=== PATIENT | female | born 1940 | race Caucasian/White ===

== ENCOUNTER 2018-04-18 13:37 | Emergency (ER) | payer MEDICARE ==
[2018-04-18 14:01] VITALS: BP 132/48
--- NOTE | 2018-04-18 14:15 | ED Physician Documentation ---
PD HPI BACK PAIN - Stated complaint Stated Complaint: BACK PX - Chief complaint Chief Complaint: Back Pain - History obtained from History obtained from: Patient - History of Present Illness Timing - onset: Chronic (She has chronic low back pain, she lives in [facility] and the meza are getting a little too hot for her so she came appear to be here until August. She contacted her pain management physician for refill and found that he [place] and now needs a refill of her medication. She has no acute complaint.) Review of Systems Constitutional: denies: Fever, Chills GI: denies: Abdominal Pain, Nausea, Vomiting, Diarrhea : reports: Reviewed and negative PD PAST MEDICAL HISTORY - Past Medical History Past Medical History: Yes Musculoskeletal: Chronic back pain - Past Surgical History Past Surgical History: Yes Ortho: Spine surgery - Present Medications Home Medications: Ambulatory Orders Medication Instructions Recorded Confirmed Calcium Carbonate [Calcium] 1 tab PO BID 04/18/18 Gabapentin 1,200 mg DAILY 04/18/18 HYDROcodone/ACET 7.5/325 [[place] 1 tab PO TID 04/18/18 7.5/325] Hydrocodone/Acetaminophen 1 each PO Q8H PRN #12 tablet 04/18/18 [Hydrocodon-Acetaminoph 7.5-325] Morphine Sulfate [Amanda] 10 mg 04/18/18 Morphine Sulfate [Morphine Sulfate 10 mg PO DAILY #4 cap.er.pel 04/18/18 ER] - Allergies Allergies/Adverse Reactions: Allergies Allergy/AdvReac Type Severity Reaction Status Date / Time Iodinated Contrast- Oral and Allergy Mild Rash Verified 04/18/18 14:02 IV Dye iodine Allergy Mild Rash Verified 04/18/18 14:02 Penicillins Allergy Mild Hives Verified 04/18/18 14:01 - Social History Does the pt smoke?: No Smoking Status: Never smoker Does the pt drink ETOH?: No Does the pt have substance abuse?: No - Immunizations Immunizations are current?: Yes PD ED PE NORMAL - Vitals Vital signs reviewed: Yes - General General: Alert and oriented X 3, No acute distress - Extremities Extremities: No deformity, No tenderness to palpate, No edema, No calf tenderness / cord - Neuro Neuro: Alert and oriented X 3, Normal speech - Psych Psych: Normal mood, Normal affect Results - Vitals Vitals: Vital Signs - 24 hr 04/18/18 13:55 Temperature 36.7 C Heart Rate 61 Respiratory 16 Rate Blood Pressure 132/48 H O2 Saturation 99 Oxygen O2 Source Room air PD MEDICAL DECISION MAKING - ED course ED course: We discussed that the emergency department only give a limited refill for pain medication[place] so she should be able to get in with him pretty quick for ongoing care while she is here for the next few months. - Sepsis Event Vital Signs: Vital Signs - 24 hr 04/18/18 13:55 Temperature 36.7 C Heart Rate 61 Respiratory 16 Rate Blood Pressure 132/48 H O2 Saturation 99 Oxygen O2 Source Room air Departure - Departure Disposition: Home, Self Care Clinical Impression: Back pain Qualifiers: Back pain location: low back pain Chronicity: chronic Back pain laterality: midline Sciatica presence: unspecified whether sciatica present Qualified Code(s ): M54.5 - Low back pain Condition: Good Record reviewed to determine appropriate education?: Yes Instructions: ED Chronic Pain Management Follow-Up: Indio Spicer MD [Credentialed Staff Provider] - Tomorrow Prescriptions: Hydrocodone/Acetaminophen [Hydrocodon-Acetaminoph 7.5-325] 1 each PO Q8H PRN # 12 tablet PRN Reason: Pain Morphine Sulfate [Morphine Sulfate ER] 10 mg PO DAILY #4 cap.er.pel Comments: Your blood pressure was elevated today on check into the emergency department. This does not mean that you have hypertension, it is a common phenomenon to come to the emergency department and have elevated blood pressure. I recommend that you see your primary care physician within the week to have it rechecked when you are feeling better.
== END 2018-04-18 14:20 | disposition home or self-care (01) ==
LOC: ED 13:37
DX: M54.5 Low back pain (principal); G89.29 Other chronic pain; R03.0 Elevated blood-pressure reading, without diagnosis of hypertension; Z76.0 Encounter for issue of repeat prescription
CPT/HCPCS: 99283

== ENCOUNTER 2018-06-25 07:57 | Emergency (ER) | payer MEDICARE ==
[2018-06-25 08:12] VITALS: BP 151/75
[2018-06-25] MEDS ORDERED: DEXAMETHASONE 10 MG/ML VIAL PO STA ×2 (08:52→08:57)
--- NOTE | 2018-06-25 08:54 | ED Physician Documentation ---
PD HPI HEENT - Stated complaint Stated Complaint: SWELLING IN MOUTH - Chief complaint Chief Complaint: Heent - History obtained from History obtained from: Patient - History of Present Illness Timing - onset: Last night Timing - duration: Hours Timing - details: Gradual onset, Still present Location: Mouth Improves: Nothing Associated symptoms: No: Fever, Congestion, Rhinorrhea, Trismus, Unable to swallow, Swollen nodes, Facial swelling, Headache, Cough Similar symptoms before: Diagnosis (angio-edema) Recently seen: Not recently seen - Additional information Additional information: 78-year-old female with a history of chronic back pain who is on morphine and is not on any lisinopril or MAGY inhibitor has developed angioedema in her mouth. She has had this happen to her a number of times over the past several years without rhyme or reason. She did have one episode that occurred after having her teeth whitened that she had to go to the emergency department for. She had an episode 2 weeks ago with slight swelling that resolved spontaneously this morning she has swelling under her tongue on the left side and on her gums on the left side upper. She is not having any compromise of her airway Review of Systems Constitutional: denies: Fever, Chills, Myalgias, Fatigue Eyes: denies: Decreased vision Ears: denies: Ear pain Nose: reports: Congestion. denies: Rhinorrhea / runny nose Throat: reports: Other (swollen tongue and gums on left). denies: Sore throat Cardiac: denies: Chest pain / pressure, Palpitations Respiratory: denies: Dyspnea, Cough GI: denies: Abdominal Pain, Nausea, Vomiting : denies: Dysuria, Frequency Skin: denies: Rash Musculoskeletal: denies: Neck pain, Back pain, Extremity pain Neurologic: denies: Generalized weakness, Focal weakness, Numbness PD PAST MEDICAL HISTORY - Past Medical History Musculoskeletal: Chronic back pain - Past Surgical History Past Surgical History: Yes Ortho: Spine surgery - Present Medications Home Medications: Ambulatory Orders Medication Instructions Recorded Confirmed Calcium Carbonate [Calcium] 1 tab PO BID 04/18/18 Gabapentin 1,200 mg DAILY 04/18/18 HYDROcodone/ACET 7.5/325 [[place] 1 tab PO TID 04/18/18 7.5/325] Hydrocodone/Acetaminophen 1 each PO Q8H PRN #12 tablet 04/18/18 [Hydrocodon-Acetaminoph 7.5-325] Morphine Sulfate [Amanda] 10 mg 04/18/18 Morphine Sulfate [Morphine Sulfate 10 mg PO DAILY #4 cap.er.pel 04/18/18 ER] Dexamethasone 8 - 12 mg PO ONCE PRN #10 tablet 06/25/18 - Allergies Allergies/Adverse Reactions: Allergies Allergy/AdvReac Type Severity Reaction Status Date / Time Iodinated Contrast- Oral and Allergy Mild Rash Verified 06/25/18 08:12 IV Dye iodine Allergy Mild Rash Verified 06/25/18 08:12 Penicillins Allergy Mild Hives Verified 06/25/18 08:12 - Social History Does the pt smoke?: No Smoking Status: Never smoker Does the pt drink ETOH?: No Does the pt have substance abuse?: No - Immunizations Immunizations are current?: Yes PD ED PE NORMAL - Vitals Vital signs reviewed: Yes (hypertensive mild ) - General General: Alert and oriented X 3, No acute distress, Well developed/nourished - HEENT HEENT: Atraumatic, PERRL, EOMI, Ears normal, Moist mucous membranes, Pharynx benign, Dentition benign, Other (There is subligular swelling more on the right and there is swelling to the gingival mucosa and reflective buccal mucosa on the left upper. There is no soft pallet or pharyngeal swelling. ) - Neck Neck: Supple, no meningeal sign, No bony TTP, No JVD - Cardiac Cardiac: RRR, No murmur - Respiratory Respiratory: No respiratory distress, Clear bilaterally - Back Back: No CVA TTP, No spinal TTP - Derm Derm: Normal color, Warm and dry, No rash - Extremities Extremities: No deformity, No edema - Neuro Neuro: Alert and oriented X 3, bottoming room inspector 2-12 intact, No motor deficit, No sensory deficit, Normal speech Eye Opening: Spontaneous Motor: Obeys Commands Verbal: Oriented GCS Score: 15 - Psych Psych: Normal mood, Normal affect Results - Vitals Vitals: Vital Signs - 24 hr 06/25/18 08:09 Temperature 36.2 C L Heart Rate 64 Respiratory 16 Rate Blood Pressure 151/75 H O2 Saturation 95 Oxygen O2 Source Room air PD MEDICAL DECISION MAKING - ED course Complexity details: considered differential, d/w patient, d/w family ED course: 78-year-old female with a history of angioedema has an episode of angioedema again today this appears mild and we are treating it with dexamethasone. She has taken Zyrtec prior to coming to the emergency department. This appears to be aquired angioedema - Sepsis Event Vital Signs: Vital Signs - 24 hr 06/25/18 08:09 Temperature 36.2 C L Heart Rate 64 Respiratory 16 Rate Blood Pressure 151/75 H O2 Saturation 95 Oxygen O2 Source Room air Departure - Departure Disposition: 01 Home, Self Care Clinical Impression: Angio-edema Qualifiers: Encounter type: initial encounter Qualified Code(s): T78.3XXA - Angioneurotic edema, initial encounter Condition: Stable Instructions: ED Angioedema Follow-Up: Indio Spicer MD [Primary Care Provider] - Prescriptions: Dexamethasone 8 - 12 mg PO ONCE PRN #10 tablet PRN Reason: angio-edema Discharge Date/Time: 06/25/18 10:57
== END 2018-06-25 10:57 | disposition home or self-care (01) ==
LOC: ED 07:57
DX: T78.3XXA Angioneurotic edema, initial encounter (principal)
CPT/HCPCS: 99283

== ENCOUNTER 2018-07-13 08:24 | Outpatient (CLI) | payer MEDICARE ==
--- NOTE | 2018-07-13 16:01 | DEXA Report ---
Reason: ASYMPTOMATIC MENOPAUSAL STATE Procedure Date: 07/13/2018 Accession Number: [id number] / [id number] Procedure: DEX - Dexa Spine and/or Hip CPT Code: FULL RESULT: EXAM: DUAL EMISSION X-RAY ABSORPTIOMETRY (DXA) SCAN EXAM DATE: 07/13/2018 09:04 AM. CLINICAL HISTORY: Postmenopausal with history of hormone replacement therapy and L5-S1 fusion COMPARISON: None. ADDITIONAL PATIENT INFORMATION: . TECHNIQUE: Dual energy x-ray absorptiometry (DXA) was performed on a [employer] System. Regions measured at the AP spine, left femoral neck, and if needed, forearm. TECHNIQUE LIMITATIONS/EXCLUSIONS: L4 excluded due to adjacent pedicle screws. FINDINGS: Bone mineral density L1 through L3: 1.179 g/cm, T score 0.1. Bone mineral density left femoral neck: 0.849 g/cm, T score -1.4. Bone mineral density left hip: 0.853 g/cm, T score -1.2. IMPRESSION: The World Health Organization classification based on the International Reference Standard is osteopenia. The fracture risk is increased. World Health Organization (WHO) Reporting guidelines (based on lowest BMD) for postmenopausal and perimenopausal women, men age 50 years and older: Normal: T-score at or greater than -1.0 Osteopenia: T-score between -1.1 to -2.4 Osteoporosis: T-score at or less than -2.5 RADIA
== END 2018-07-13 08:25 | disposition home or self-care (01) ==
LOC: DI 08:24
PROVIDERS: ATTEND Internal Medicine
DX: M85.88 Other specified disorders of bone density and structure, other site (principal)
CPT/HCPCS: 77080

== ENCOUNTER 2018-10-22 09:13 | Emergency (ER) | payer MEDICARE ==
[2018-10-22 09:20] VITALS: BP 138/61
--- NOTE | 2018-10-22 11:53 | ED Physician Documentation ---
PD HPI BACK PAIN - Stated complaint Stated Complaint: BACK PX - Chief complaint Chief Complaint: Back Pain - History obtained from History obtained from: Patient - History of Present Illness Timing - onset: Other (This is a sylvie 78-year-old woman with history of chronic back pain. She lives for the most part in [place], although spends time appear especially in the summer. She left her medications in [place] and has increasing lower back pain. More recently she had a radiofrequency ablation on the back which she felt like made her worse and she was on steroids which did not help.) Review of Systems Constitutional: denies: Fever, Chills Cardiac: denies: Chest pain / pressure, Palpitations Respiratory: denies: Dyspnea, Cough PD PAST MEDICAL HISTORY - Past Medical History Past Medical History: Yes Musculoskeletal: Chronic back pain - Past Surgical History Past Surgical History: Yes Ortho: Spine surgery - Present Medications Home Medications: Ambulatory Orders Medication Instructions Recorded Confirmed Calcium Carbonate [Calcium] 1 tab PO BID 04/18/18 10/22/18 Gabapentin 1,200 mg DAILY 04/18/18 10/22/18 Hydrocodone/Acetaminophen 1 each PO Q8H PRN #12 tablet 04/18/18 10/22/18 [Hydrocodon-Acetaminoph 7.5-325] Morphine Sulfate [Morphine Sulfate 10 mg PO DAILY #4 cap.er.pel 04/18/18 10/22/18 ER] Dexamethasone 8 - 12 mg PO ONCE PRN 10/22/18 10/22/18 HYDROcodone/ACET 7.5/325 [[place] 1 each PO Q6H PRN #18 tablet 10/22/18 7.5/325] Lidocaine Patch 5% [Lidoderm Patch] 1 patch TOP DAILY PRN #10 patch 10/22/18 Morphine ER 15 mg PO DAILY #6 tablet 10/22/18 - Allergies Allergies/Adverse Reactions: Allergies Allergy/AdvReac Type Severity Reaction Status Date / Time Iodinated Contrast- Oral and Allergy Mild Rash Verified 10/22/18 09:20 IV Dye iodine Allergy Mild Rash Verified 10/22/18 09:20 Penicillins Allergy Mild Hives Verified 10/22/18 09:20 bee venom protein (honey bee) Allergy Anaphylaxis Verified 10/22/18 09:20 - Social History Does the pt smoke?: No Smoking Status: Never smoker Does the pt drink ETOH?: No Does the pt have substance abuse?: No - Immunizations Immunizations are current?: Yes PD ED PE NORMAL - Vitals Vital signs reviewed: Yes - General General: Alert and oriented X 3, No acute distress - Back Back: Other (She has a lumbar incision consistent with spinal fusion and there is a bruise actually over about L5. No midline tenderness.) - Neuro Neuro: Alert and oriented X 3, Normal speech Results - Vitals Vitals: Vital Signs - 24 hr 10/22/18 09:17 Temperature 36.8 C Heart Rate 56 L Respiratory 18 Rate Blood Pressure 138/61 H O2 Saturation 98 Oxygen O2 Source Room air PD MEDICAL DECISION MAKING - ED course ED course: The [place] prescription monitoring program was queried with regard to this patient. No concerning findings were found. Departure - Departure Disposition: 01 Home, Self Care Clinical Impression: Back pain Qualifiers: Back pain location: low back pain Chronicity: chronic Back pain laterality: midline Sciatica presence: without sciatica Qualified Code(s): M54.5 - Low back pain; G89.29 - Other chronic pain Condition: Good Record reviewed to determine appropriate education?: Yes Instructions: ED Chronic Pain Management Prescriptions: HYDROcodone/ACET 7.5/325 [[place] 7.5/325] 1 each PO Q6H PRN #18 tablet PRN Reason: Pain Lidocaine Patch 5% [Lidoderm Patch] 1 patch TOP DAILY PRN #10 patch PRN Reason: pain Morphine ER 15 mg PO DAILY #6 tablet Comments: Your blood pressure was elevated today on check into the emergency department. This does not mean that you have hypertension, it is a common phenomenon to come to the emergency department and have elevated blood pressure. I recommend that you see your primary care physician within the week to have it rechecked when you are feeling better.
== END 2018-10-22 12:03 | disposition home or self-care (01) ==
LOC: ED 09:13
DX: M54.5 Low back pain (principal); G89.29 Other chronic pain; Z98.1 Arthrodesis status; R03.0 Elevated blood-pressure reading, without diagnosis of hypertension
CPT/HCPCS: 99283

== ENCOUNTER 2019-05-08 12:24 | Outpatient (CLI) | payer MEDICARE ==
[2019-05-08 13:00] LABS: BASOPHILS # (AUTO) 0.1 10^3/uL (0.0-0.1); BASOPHILS % (AUTO) 1.1 %; EOSINOPHILS # (AUTO) 0.2 10^3/uL (0.0-0.7); EOSINOPHILS % (AUTO) 4.5 %; HGB - HEMOGLOBIN 13.7 g/dL (12.0-16.0); LYMPHOCYTES # (AUTO) 1.4 10^3/uL (1.5-3.5); LYMPHOCYTES % (AUTO) 29.1 %; MEAN CORPUSCULAR HEMOGLOBIN 33.1 pg (27.0-31.0); MEAN CORPUSCULAR HGB CONC 33.2 g/dL (32.0-36.0); MEAN CORPUSCULAR VOLUME 99.8 fL (81.0-99.0); MEAN PLATELET VOLUME 11.2 fL (7.9-10.8); MONOCYTES # (AUTO) 0.5 10^3/uL (0.0-1.0); MONOCYTES % (AUTO) 10.6 %; NEUTROPHILS # (AUTO) 2.5 10^3/uL (1.5-6.6); NEUTROPHILS % (AUTO) 54.5 %; PLT - PLATELET COUNT 200 10^3/uL (130-450); RED BLOOD COUNT 4.14 10^6/uL (4.20-5.40); RED CELL DISTRIBUTION WIDTH 12.8 % (12.0-15.0); WHITE BLOOD COUNT 4.6 x10^3/uL (4.8-10.8)
[2019-05-08 13:05] LABS: BILIRUBIN,URINE NEGATIVE (NEGATIVE); GLUCOSE, URINE (UA) NEGATIVE (NEGATIVE); KETONES,URINE (UA) NEGATIVE (NEGATIVE); LEUKOCYTE ESTERASE, URINE NEGATIVE (NEGATIVE); NITRITE,URINE NEGATIVE (NEGATIVE); OCCULT BLOOD,URINE SMALL (NEGATIVE); PROTEIN,URINE NEGATIVE (NEGATIVE); UROBILINOGEN,URINE 0.2 (NORMAL) E.U./dL (NORMAL)
[2019-05-08 13:07] LABS: CALCIUM 9.3 mg/dL (8.5-10.3)
[2019-05-08 13:10] LABS: PT - PROTHROMBIN TIME 11.6 secs (9.9-12.6)
[2019-05-08 13:17] LABS: CLARITY,URINE CLEAR (CLEAR)
[2019-05-08 13:17] LABS: PARTIAL THROMBOPLASTIN TIME 25.3 secs (24.9-33.3)
[2019-05-08 13:19] LABS: BACTERIA,URINE None Seen /HPF (None Seen); RBC,URINE 0-5 /HPF (0-5); SQUAMOUS EPITHELIAL CELL,UR MOD Squamous (<= Few)
== END 2019-05-08 12:25 | disposition home or self-care (01) ==
LOC: LAB 12:24
PROVIDERS: ATTEND Orthopaedic Surgery Orthopaedic Surgery of the Spine
DX: Z01.812 Encounter for preprocedural laboratory examination (principal); M79.606 Pain in leg, unspecified; M25.50 Pain in unspecified joint
CPT/HCPCS: 36415; 80048; 81001; 85025; 85610; 85730

== ENCOUNTER 2021-05-26 08:34 | Emergency (ER) | payer MEDICARE ==
--- NOTE | 2021-05-26 09:17 | ED Physician Documentation ---
PD HPI URI - Stated complaint Stated Complaint: THROAT PX/SINUS PX - Chief complaint Chief Complaint: General - History obtained from History obtained from: Patient - History of Present Illness Timing - onset: How many days ago (6) Timing duration: Days (6) Timing details: Gradual onset, Still present Associated symptoms: Nasal congestion, Sinus pain (left periorbital), Sore throat. No: Fever Contributing factors: No: Sick contact, Travel, Immunocompromised, Unimmunized (got COVID vaccine months ago) Similar symptoms before: Has not had sx before Review of Systems Constitutional: reports: Myalgias, Fatigue. denies: Fever, Chills Ears: denies: Ear pain, Drainage/discharge Nose: reports: Congestion, Sinus pressure / pain. 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, Oophrectomy - Present Medications Home Medications: Ambulatory Orders Medication Instructions Recorded Confirmed Calcium Carbonate [Calcium] 1 tab PO BID 04/18/18 10/22/18 Gabapentin 1,200 mg DAILY 04/18/18 10/22/18 Hydrocodone/Acetaminophen 1 each PO Q8H PRN #12 tablet 04/18/18 10/22/18 [Hydrocodon-Acetaminoph 7.5-325] Morphine Sulfate [Morphine Sulfate 10 mg PO DAILY #4 cap.er.pel 04/18/18 10/22/18 ER] HYDROcodone/ACET 7.5/325 [[place] 1 each PO Q6H PRN #18 tablet 10/22/18 7.5/325] Lidocaine Patch 5% [Lidoderm Patch] 1 patch TOP DAILY PRN #10 patch 10/22/18 Morphine ER [Morphine Sulfate ER] 15 mg PO DAILY #6 tablet 10/22/18 dexAMETHasone [Dexamethasone] 8 - 12 mg PO ONCE PRN 10/22/18 10/22/18 Cetirizine [ZyrTEC] 10 mg PO DAILY #15 tablet 05/26/21 cephALEXin [Keflex] 500 mg PO TID #20 cap 05/26/21 dexAMETHasone [Decadron] 4 mg PO DAILY #5 tablet 05/26/21 - Allergies Allergies/Adverse Reactions: Allergies Allergy/AdvReac Type Severity Reaction Status Date / Time Iodinated Contrast Media Allergy Mild Rash Verified 05/26/21 08:51 [Iodinated Contrast- Oral and IV Dye] iodine Allergy Mild Rash Verified 05/26/21 08:51 Penicillins Allergy Mild Hives Verified 05/26/21 08:51 bee venom protein (honey bee) Allergy Anaphylaxis Verified 05/26/21 08:51 - Social History Does the pt smoke?: No Smoking Status: Never smoker Does the pt drink ETOH?: Yes Does the pt have substance abuse?: No - Immunizations Immunizations are current?: Yes PD ED PE NORMAL - Vitals Vital signs reviewed: Yes - General General: Alert and oriented X 3, No acute distress, Well developed/nourished - HEENT HEENT: Ears normal, Pharynx benign, Other (maxillary sinus tenderness to percussion left only.) - Neck Neck: Supple, no meningeal sign, No adenopathy - Cardiac Cardiac: RRR, No murmur - Respiratory Respiratory: Clear bilaterally Results - Vitals Vitals: Oxygen O2 Source Room air PD MEDICAL DECISION MAKING - ED course Complexity details: considered differential (focal left sinus pressure with sore throat. Seems likelyu acute infection.), d/w patient Departure - Departure Disposition: 01 Home, Self Care Clinical Impression: Sinusitis, acute Qualifiers: Sinusitis location: maxillary Recurrence: non-recurrent Qualified Code(s): J01.00 - Acute maxillary sinusitis, unspecified Condition: Stable Record reviewed to determine appropriate education?: Yes Instructions: ED Sinusitis Abx Tx Follow-Up: Indio Spicer MD [Primary Care Provider] - Prescriptions: dexAMETHasone [Decadron] 4 mg PO DAILY #5 tablet cephALEXin [Keflex] 500 mg PO TID #20 cap Cetirizine [ZyrTEC] 10 mg PO DAILY #15 tablet Comments: Is likely to be a sinus infection given the localized pain around the left eye and sinus along with the sore throat. We can treat her with cephalexin antibiotic as well as Decadron anti-inflammatory and cetirizine antihistamine. Add Tylenol if needed for pains. Frequent fluids. Recheck if not improved well over the next several days and resolved by 3 to 5 days. Return if worse. Discharge Date/Time: 05/26/21 10:01
[2021-05-26] MEDS ORDERED: cephALEXin 250 MG CAPSULE PO STA (09:30)
[2021-05-26] MEDS ORDERED: CHERRY SYRUP 10 ML UDC PO ONE (09:30)
[2021-05-26] MEDS ORDERED: DEXAMETHASONE 10 MG/ML VIAL PO STA (09:30)
[2021-05-26] MEDS: CETIRIZINE 10 MG TABLET PO STA ×2 (09:36→09:38)
[2021-05-26 09:57] VITALS: BP 125/59
== END 2021-05-26 10:01 | disposition home or self-care (01) ==
LOC: ED 08:34
DX: J01.00 Acute maxillary sinusitis, unspecified (principal)
CPT/HCPCS: 99283; A9270

== ENCOUNTER 2021-06-11 09:18 | Outpatient (CLI) | payer MEDICARE | END 2021-06-11 09:19 | disposition home or self-care (01) | LOC: LAB 09:18 | PROVIDERS: ATTEND Internal Medicine | DX: M25.50 Pain in unspecified joint (principal) | CPT/HCPCS: 36415; 84550; 85651 ==

== ENCOUNTER 2021-06-11 09:27 | Outpatient (CLI) | payer MEDICARE ==
--- NOTE | 2021-06-11 10:22 | XRAY Report ---
PROCEDURE: Foot 2 View BILAT INDICATIONS: RIGHT ANKLE PAIN, BILATERAL FOOT/HELL PAIN TECHNIQUE: 2 views of the bilateral feet were acquired. COMPARISON: Right ankle from the same date FINDINGS: Bones: No fractures or dislocations. No suspicious bony lesions. Left foot hallux valgus and bunion and mild first MTP degenerative change. Mild left foot tailor's bu nion. Remote ORIF of the left distal fibula. Remote right foot bunionectomy and osteotomy. Intact right first metatarsal pin. Mild right first MTP degenerative change. Mild right Claudia's bunion. Soft tissues: No tibiotalar joint effusion. Achilles tendon appears normal. IMPRESSION: No evidence of acute bony abnormality of either foot. Bilateral tailor's bunions, left foot hallux va lgus and bunion, mild first MTP degenerative change bilaterally. Reviewed by: Cory Roger MD on 06/11/2021 10:21 AM PDT Approved by: Cory Roger MD on 06/11/2021 10:21 AM PDT Station ID: [id number]
--- NOTE | 2021-06-11 12:29 | XRAY Report ---
PROCEDURE: Ankle 3 View RT INDICATIONS: RIGHT ANKLE PAIN, BILATERAL FOOT/HELL PAIN TECHNIQUE: 3 views of the ankle were acquired. COMPARISON: None FINDINGS: Bones: No fractures or dislocations. Ankle mortise is normally aligned. No suspicious bony lesions . There are plantar and Achilles calcaneal spurs. Soft tissues: No tibiotalar joint effusion. Achilles tendon appears normal. IMPRESSION: No acute abnormality of the right ankle. Reviewed by: Jenaro Prabhakar on 06/11/2021 12:27 PM PDT Approved by: Jenaro Prabhakar on 06/11/2021 12:27 PM PDT Station ID: [id number]
== END 2021-06-11 09:28 | disposition home or self-care (01) ==
LOC: DI 09:27
PROVIDERS: ATTEND Internal Medicine
DX: M25.571 Pain in right ankle and joints of right foot (principal); M21.622 Bunionette of left foot; M21.621 Bunionette of right foot; M20.12 Hallux valgus (acquired), left foot; M21.612 Bunion of left foot; M19.071 Primary osteoarthritis, right ankle and foot; M25.50 Pain in unspecified joint
CPT/HCPCS: 36415; 84550; 85651

== ENCOUNTER 2021-06-16 18:32 | Emergency (ER) | payer MEDICARE ==
[2021-06-16 18:38] VITALS: BP 132/53
--- NOTE | 2021-06-16 19:21 | XRAY Report ---
PROCEDURE: Finger(s) LT INDICATIONS: Trauma TECHNIQUE: PA view of the hand and 2 views of the middle finger obtained. COMPARISON: None. FINDINGS: Bones: There is a mildly displaced intra-articular fracture at the dorsal base of the third distal ph alanx, which may be related to avulsion at the extensor tendon insertion. Proximal retraction is seen measuring up to 3 mm. Degenerative changes are seen throughout the interphalangeal joints. No suspic ious bony lesions. Soft tissues: No suspicious soft tissue calcifications. IMPRESSION: Mildly displaced intra-articular fracture at the dorsal base of the third distal phalanx. Reviewed by: Won Hall MD on 06/16/2021 7:20 PM PDT Approved by: Won Hall MD on 06/16/2021 7:20 PM PDT Station ID: [id number]
--- NOTE | 2021-06-16 20:35 | ED Physician Documentation ---
History of Present Illness - Stated complaint Stated Complaint: LT MIDDLE FINGER INJURY - Chief complaint Chief Complaint: Trauma Ext - History obtained from History obtained from: Patient - Additonal information Additional information: Patient comes emergency department chief complaint of left middle finger pain after smashing it in a folding chair. She states she was not injured in any other way. She states she can flex at the DIP joint but cannot extend. No other complaints at this time. Review of Systems Ten Systems: 10 systems reviewed and negative Constitutional: reports: Reviewed and negative Eyes: reports: Reviewed and negative Ears: reports: Reviewed and negative Nose: reports: Reviewed and negative Throat: reports: Reviewed and negative Cardiac: reports: Reviewed and negative Respiratory: reports: Reviewed and negative GI: reports: Reviewed and negative : reports: Reviewed and negative Skin: reports: Laceration (s) Musculoskeletal: reports: Extremity pain Neurologic: reports: Reviewed and negative Psychiatric: reports: Reviewed and negative Endocrine: reports: Reviewed and negative Immunocompromised: reports: Reviewed and negative PD PAST MEDICAL HISTORY - Past Medical History Past Medical History: Yes Respiratory: None Endocrine/Autoimmune: None Musculoskeletal: Chronic back pain - Past Surgical History Past Surgical History: Yes Ortho: Spine surgery /[employer] MACHINE: Hysterectomy, Oophrectomy - Present Medications Home Medications: Ambulatory Orders Medication Instructions Recorded Confirmed HYDROcod/ACETAM 5/325 [[place] 5/325] 1 - 2 tablet PO Q6H PRN 06/16/21 06/16/21 HYDROcod/ACETAM 5/325 [[place] 5/325] 1 - 2 tablet PO Q6H PRN #14 tablet 06/16/21 Losartan [Cozaar] 50 mg PO DAILY 06/16/21 06/16/21 Prednisone [[place]] 10 mg PO 06/16/21 06/16/21 amLODIPine [Norvasc] 5 mg PO DAILY 06/16/21 06/16/21 - Allergies Allergies/Adverse Reactions: Allergies Allergy/AdvReac Type Severity Reaction Status Date / Time Iodinated Contrast Media Allergy Mild Rash Verified 06/16/21 18:35 [Iodinated Contrast- Oral and IV Dye] iodine Allergy Mild Rash Verified 06/16/21 18:35 Penicillins Allergy Mild Hives Verified 06/16/21 18:35 bee venom protein (honey bee) Allergy Anaphylaxis Verified 06/16/21 18:35 - Social History Does the pt smoke?: No Smoking Status: Never smoker Does the pt drink ETOH?: Yes Does the pt have substance abuse?: No - Immunizations Immunizations are current?: Yes PD ED PE NORMAL - Vitals Vital signs reviewed: Yes - General General: Alert and oriented X 3, No acute distress, Well developed/nourished - HEENT HEENT: Atraumatic, PERRL, EOMI, Moist mucous membranes - Neck Neck: Supple, no meningeal sign - Cardiac Cardiac: Strong equal pulses - Respiratory Respiratory: No respiratory distress - Derm Derm: Normal color, Warm and dry, No rash, Other (Skin tear left middle finger over middle phalanx. Subungual hematoma without nail disruption.) - Extremities Extremities: No deformity, Other (Swelling and persistent flexion over DIP left middle finger. Passive extension easily possible, but patient cannot hold it actively. 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, No motor deficit, No sensory deficit, Normal speech - Psych Psych: Normal mood, Normal affect Results - Vitals Vitals: Vital Signs - 24 hr 06/16/21 18:35 Temperature 36.5 C Heart Rate 60 Respiratory 16 Rate Blood Pressure 132/53 H O2 Saturation 100 Oxygen O2 Source Room air - Rads (name of study) L fingers XR Radiology: Final report received, EMP read indepedently, See rad report (Comminuted intra-articular fracture distal phalanx.) Procedures - Splint (location) L middle finger Splint applied by: Tech Type of splint: Metal foam finger splint PD MEDICAL DECISION MAKING - ED course Complexity details: reviewed results, re-evaluated patient, considered diff erential, d/w patient ED course: Discussed with the patient that her x-ray shows a fracture at the DIP joint. I am also concerned about her extensor tendon integrity. She has been splinted in extension and I have discussed the importance of hand specialty follow-up within the week. She states she would like to go to [facility], so I have given her a couple of options there. She was given a dose of Vicodin for pain control and a prescription for the same. Departure - Departure Disposition: 01 Home, Self Care Clinical Impression: Finger fracture, left Qualifiers: Encounter type: initial encounter Finger: middle finger Fracture type: closed Phalanx: distal Fracture alignment: displaced Qualified Code(s): S62.633A - Displaced fracture of distal phalanx of left middle finger, initial encounter for closed fracture Condition: Stable Instructions: ED Fx Finger Closed Follow-Up: Roberto Chowdhury MD [Physician No Access] - MARY FRANCIS MD [Physician No Access] - Prescriptions: HYDROcod/ACETAM 5/325 [[place] 5/325] 1 - 2 tablet PO Q6H PRN #14 tablet PRN Reason: Pain Comments: Your x-ray shows a fracture, or break, of the last bone of your middle finger, right at the joint. Given that you seem to be having trouble keeping your finger straight at that joint, it is very important that you follow-up with hand specialist the fracture also does involve the part of the bone that interfaces at the joint, so once again, it is important to follow-up with the hand specialist for this reason, too. I have given you a couple options for this. Please call first thing tomorrow morning to set up this appointment to be sure you are seen in a timely manner to prevent any loss of function.
[2021-06-16] MEDS: HYDROcod/ACETAM 5/325 MG TABLET PO STA (20:37)
== END 2021-06-16 20:57 | disposition home or self-care (01) ==
LOC: ED 18:32
DX: S61.213A Laceration without foreign body of left middle finger without damage to nail, initial encounter (principal); S62.633A Displaced fracture of distal phalanx of left middle finger, initial encounter for closed fracture; W23.1XXA Caught, crushed, jammed, or pinched between stationary objects, initial encounter
CPT/HCPCS: 73140; 99283; A9270